=== PATIENT | female | born 1975 | race African-American/Black ===

== ENCOUNTER 2025-03-18 16:31 | Emergency (ER) | payer MEDICAID ==
[~2025-03-18] VITALS: Ht 160 cm; Wt 81.6 kg
[2025-03-18 16:34] VITALS: O2SAT 100
[2025-03-18 17:51] LABS: BASOPHILS % 0.8 % (0.0-2.0); EOSINOPHILS % 1.9 % (0.0-5.0); HEMATOCRIT. 33.9 % (36.0-48.0); HEMOGLOBIN. 10.8 g/dL (12.0-16.0); LYMPHOCYTES % 24.2 % (20.0-50.0); MEAN PLATELET VOLUME 9.0 fl (7.4-10.4); MONOCYTES % 5.3 % (2.0-8.0); NEUTROPHILS % 67.8 % (40.0-76.0); PLATELET 248 x1000/uL (130-400); RED BLOOD CELL COUNT 4.21 mill/uL (4.2-5.4); RED CELL DISTRIBUTION WIDTH 19.5 % (11.6-14.6)
[2025-03-18 18:04] LABS: CREATININE 0.9 mg/dL (0.6-1.0)
[2025-03-18 18:05] LABS: UREA NITROGEN BLOOD 6 mg/dL (9-23)
[2025-03-18] MEDS: MORPHINE SULFATE 4 MG/ML INJ (FOR IV/IM USE) IV STA (18:05)
[2025-03-18] MEDS: ONDANSETRON HCL 4MG/2ML INJ IV STA (18:05)
[2025-03-18 18:06] LABS: ASPARTATE AMINOTRANSFERASE 20 IU/L (<34)
[2025-03-18 18:07] LABS: BILIRUBIN DIRECT 0.2 mg/dL (<=3.0); BILIRUBIN TOTAL 0.6 mg/dL (0.1-1.0); PROTEIN TOTAL 7.7 g/dL (6.0-8.3)
[2025-03-18] MEDS: SODIUM CHLORIDE 0.9% 1,000 ML IV ONE (18:15)
[2025-03-18 18:18] LABS: HCG SCREEN NEGATIVE
[2025-03-18] MEDS: KETOROLAC 30MG/ML VIAL IM ONE (19:59)
[2025-03-18] MEDS ORDERED: HYDR-4001 MT (20:45)
[2025-03-18 21:24] VITALS: BP 160/92; PULSE 82; RESP 18; TEMP 36.8; O2SAT 100
== END 2025-03-18 21:33 | disposition home or self-care (01) ==
LOC: ER 16:31
DX: D25.9 Leiomyoma of uterus, unspecified (principal); Z86.018 Personal history of other benign neoplasm; Z98.890 Other specified postprocedural states
CPT/HCPCS: 80076; 80048; 84703; 83690; 85025; 36415; 74176; 96372; 99285; J1885; J7030; Z7610